=== PATIENT | female | born 1970 ===

== ENCOUNTER 2022-12-16 10:21 | Inpatient (IN) | payer OTHER ==
[~2022-12-16] VITALS: Ht 167.6 cm; Wt 100.2 kg
[2022-12-17] MEDS ORDERED: GABAPENTIN800 M1 PO (11:51)
[2022-12-17] MEDS ORDERED: LOSARTAN POTASS50 MG PO (11:51)
[2022-12-17] MEDS ORDERED: WELLBUTRIN XL300 MG PO (11:52)
[2022-12-17] MEDS ORDERED: DICY20TA PO (11:52)
[2022-12-17] MEDS ORDERED: ACID REDUCER20 M1 PO (11:52)
== END 2022-12-28 15:29 | disposition home or self-care (01) | DRG 331 ==
LOC: SURG 12-22 10:30 → O/R 12-26 09:02 → SURH 12-26 18:19 → O/R 12-26 18:28 → SURH 12-26 19:08
PROVIDERS: ADMIT Colon & Rectal Surgery; ATTEND Colon & Rectal Surgery
PROC: 0DBP4ZZ Excision of Rectum, Percutaneous Endoscopic Approach (ICD-10-PCS; 2022-12-26)
PROC: 0DJD8ZZ Inspection of Lower Intestinal Tract, Via Natural or Artificial Opening Endoscopic (ICD-10-PCS; 2022-12-26)
PROC: 0DTN4ZZ Resection of Sigmoid Colon, Percutaneous Endoscopic Approach (ICD-10-PCS; principal; 2022-12-26 13:30)
DX: K57.32 Diverticulitis of large intestine without perforation or abscess without bleeding (principal); R10.32 Left lower quadrant pain; I11.9 Hypertensive heart disease without heart failure

== ENCOUNTER 2024-10-17 08:03 | Outpatient (CLI) | payer OTHER ==
[~2024-10-17 08:03] MED LIST: ACID REDUCER20 M1 PO; DICY20TA PO; GABAPENTIN800 M1 PO; LOSARTAN POTASS50 MG PO; WELLBUTRIN XL300 MG PO
== END 2024-10-17 08:08 | disposition home or self-care (01) ==
LOC: SONOGRAMA 08:03
PROVIDERS: ATTEND Pathology Anatomic Pathology & Clinical Pathology
DX: D34 Benign neoplasm of thyroid gland (principal); E07.89 Other specified disorders of thyroid; E04.1 Nontoxic single thyroid nodule